=== PATIENT | male | born 1990 | race African-American/Black ===

== ENCOUNTER 2017-04-24 15:37 | Emergency (ER) | payer OTHER ==
[2017-04-24 15:41] VITALS: BP 140/82; PULSE 67; RESP 20; TEMP 98.8
--- NOTE | 2017-04-24 16:24 | ED ---
Male Urogenital HPI - General Chief complaint: Urogenital Stated complaint: groin & leg pain Time Seen by Provider: 04/24/17 16:12 Source: patient Mode of arrival: ambulatory Limitations: no limitations - History of Present Illness Initial comments: This 26-year-old after male presents complaining of some right groin pain. He states that his is been present for the last 3 days. It is somewhat worse with certain movements as well as bearing down for a bowel movement. He is worried about a hernia. He apparently did have bilateral inguinal hernia repairs as a child. He states that the pain will sometimes radiate into his right scrotum. He denies any actual injuries. No other complaints or modifying factors. - Related Data Previous Rx's Medication Instructions Recorded traMADol HCl [Ultram] 50 - 100 mg PO Q6H PRN #15 tab 04/24/17 Allergies Allergy/AdvReac Type Severity Reaction Status Date / Time Penicillins Allergy Unknown Verified 04/24/17 15:41 Review of Systems ROS Statement: Those systems with pertinent positive or pertinent negative responses have been documented in the HPI. ROS Other: All systems not noted in ROS Statement are negative. Past Medical History Additional Past Medical History / Comment(s): allergies History of Any Multi-Drug Resistant Organisms: None Reported Past Surgical History: Hernia Repair Past Psychological History: No Psychological Hx Reported Smoking Status: Never smoker Past Alcohol Use History: None Reported Past Drug Use History: None Reported General Exam Limitations: no limitations General appearance: alert, in no apparent distress GI/Abdominal exam: Present: soft. Absent: distended, tenderness exam: Present: normal inspection, vertical testicular lie, other (There is tenderness into the right inguinal canal. There is evidence of a slight hernia upon coughing.). Absent: testicular tenderness, urethral discharge, scrotal swelling Psychiatric exam: Present: normal affect, normal mood Skin exam: Present: intact. Absent: rash Course Vital Signs 04/24/17 15:39 Temperature 98.8 F Pulse Rate 67 Respiratory 20 Rate Blood Pressure 140/82 O2 Sat by Pulse 98 Oximetry Medical Decision Making - Medical Decision Making The patient was seen and examined. It is felt as though he does have a right inguinal hernia and would benefit from follow-up with surgery in this regard. There is no evidence of any incarceration or strangulation at this time. Is felt that he could follow-up on an outpatient basis with possible outpatient surgery. He is agreeable to this plan and leaves in no distress. Disposition Clinical Impression: Right inguinal hernia Disposition: HOME SELF-CARE Condition: Good Instructions: Inguinal Hernia (ED) Prescriptions: traMADol HCl [Ultram] 50 - 100 mg PO Q6H PRN #15 tab PRN Reason: Pain Referrals: None,Stated [Primary Care Provider] - 1-2 days Sybil Montiel MD [STAFF PHYSICIAN] - 04/28/17 Time of Disposition: 16:23
== END 2017-04-24 16:36 | disposition home or self-care (01) ==
LOC: EC 15:37
DX: K40.90 Unilateral inguinal hernia, without obstruction or gangrene, not specified as recurrent (principal); Z98.890 Other specified postprocedural states; Z88.0 Allergy status to penicillin
CPT/HCPCS: 99283

== ENCOUNTER → 2017-05-02 | Outpatient (CLI) | payer OTHER ==
--- NOTE | 2017-05-02 08:29 | CT ---
EXAMINATION TYPE: CT abdomen pelvis w con DATE OF EXAM: 05/02/2017 COMPARISON: NONE HISTORY: 26-year-old male with right sided inguinal hernia TECHNIQUE: Contiguous axial scanning of the abdomen and pelvis following administration of 100 ml Omn ipaque 300 IV contrast. Delayed images through the kidneys and coronal/sagittal reconstructions perf ormed. CT DLP: 1445.2 mGycm Automated exposure control for dose reduction was used. FINDINGS: The heart is normal size without pericardial effusion. Lung bases clear without pleural effusion. Liver enlarged measuring 22.6 cm craniocaudal. There is some focal fatty sparing along the gallbladde r fossa with a diffuse decreased attenuation of the liver. No biliary ductal dilatation. Portal venou s system is patent. Gallbladder, adrenal glands, kidneys, spleen, and pancreas appear within normal limits. A few scattered prominent mesenteric lymph nodes measure up to 7 mm and are probably reactive/post in flammatory. No dilated small bowel, free fluid, or free air. Normal appendix. Mild overall stone burden. No pericolonic inflammatory change. Bladder is urine distended. No abnormal fluid collection in the pelvis or pelvic lymphadenopathy seen . Bones: No osseous destructive process. IMPRESSION: 1. MARKED HEPATOMEGALY AND HEPATIC STEATOSIS. CORRELATE WITH LFT's, LIPID PROFILE, AND PATIENT RISK F ACTORS. 2. A FEW SCATTERED BORDERLINE ENLARGED MESENTERIC LYMPH NODES (MEASURING UP TO 7 MM) ARE LIKELY REACT RICKEY/POST INFLAMMATORY. 3. NORMAL APPENDIX.
== END | disposition home or self-care (01) ==
LOC: RADCTMAIN 07:10
PROVIDERS: ATTEND Surgery
DX: K76.0 Fatty (change of) liver, not elsewhere classified (principal); R16.0 Hepatomegaly, not elsewhere classified; R59.0 Localized enlarged lymph nodes; R10.31 Right lower quadrant pain
CPT/HCPCS: 74177; Q9967

== ENCOUNTER → 2018-01-23 | Outpatient (CLI) | payer OTHER ==
--- NOTE | 2018-01-23 15:21 | XR ---
EXAMINATION TYPE: XR chest 2V DATE OF EXAM: 01/23/2018 COMPARISON: NONE HISTORY: Chest pain TECHNIQUE: Frontal and lateral views of the chest are obtained. FINDINGS: There is no focal air space opacity. No evidence for pneumothorax. No pleural effusion. The cardiac silhouette size is within normal limits. The osseous structures are grossly intact. IMPRESSION: 1. No acute cardiopulmonary process.
[2018-01-23 15:28] LABS: HCT 48.4 % (39.0-53.0); HGB 15.8 gm/dL (13.0-17.5); MCHC 32.7 g/dL (31.0-37.0); MCV 88.5 fL (80.0-100.0); Mean Platelet Volume 7.9; Platelet Count 279 k/uL (150-450); RBC 5.46 m/uL (4.30-5.90); RDW 12.7 % (11.5-15.5); WBC 8.7 k/uL (3.8-10.6)
[2018-01-23 15:51] LABS: ALT 56 U/L (21-72); AST 40 U/L (17-59); Albumin 4.7 g/dL (3.5-5.0); Alkaline Phosphatase 69 U/L (38-126); Anion Gap 16 mmol/L; Blood Urea Nitrogen 15 mg/dL (9-20); Calcium 10.2 mg/dL (8.4-10.2); Carbon Dioxide 24 mmol/L (22-30); Chloride 105 mmol/L (98-107); Cholesterol 200 mg/dL (<200); Glucose 94 mg/dL (74-99); HDL Cholesterol 57 mg/dL (40-60); LDL Cholesterol,Calculated 124 mg/dL (0-99); Potassium 4.4 mmol/L (3.5-5.1); Sodium 145 mmol/L (137-145); Total Bilirubin 0.5 mg/dL (0.2-1.3); Triglycerides 93 mg/dL (<150)
[2018-01-23 16:02] LABS: T4, Free (Free Thyroxine) 0.77 ng/dL (0.78-2.19)
== END | disposition home or self-care (01) ==
LOC: RADXRMAIN 14:57
PROVIDERS: ATTEND Internal Medicine
DX: Z00.00 Encounter for general adult medical examination without abnormal findings (principal); I11.9 Hypertensive heart disease without heart failure; E66.1 Drug-induced obesity
CPT/HCPCS: 36415; 71046; 80053; 80061; 84439; 84443; 85027